=== PATIENT | male | born 1965 | race African-American/Black ===

== ENCOUNTER 2017-07-12 18:50 | Inpatient (IN) | payer OTHER ==
[2017-07-12 20:20] VITALS: BMI 25.9
--- NOTE | 2017-07-12 21:13 | HP ---
COWS - Scale Resting Pulse: 1= RI 81-100 Sweatin= Chills/Flushing Restless Observation: 1= Difficult to Sit Still Pupil Size: 1= Pupils >than Normal Bone or Joint Aches: 2= Severe Diffuse Aches Runny Nose/ Eye Tearin= Nasal Congestion GI Upset > 30mins: 2= Nausea/Diarrhea Tremor Observation: 1= Tremor [place], Not Seen Yawning Observation: 1= 1-2x During Session Anxiety or Irritability: 1=Feels Anxious/Irritable Goose Flesh Skin: 3=Piloerection COWS Score: 15 CIWA Score - CIWA Score Nausea/Vomitin-Mild Nausea/No Vomiting Muscle Tremors: 2 Anxiety: 2 Agitation: 2 Paroxysmal Sweats: 1-Minimal Palms Moist Orientation: 2-Disoriented Date<2 days Tacttile Disturbances: 1-Very Mild Itch/Numbness Auditory Disturbances: 1-Very Mild Visual Disturbances: 1-Very Mild Sensitivity Headache: 2-Mild CIWA-Ar Total Score: 15 Admission [facility] - HPI Chief Complaint: Withdrawal symptoms Allergies/Adverse Reactions: Allergies Allergy/AdvReac Type Severity Reaction Status Date / Time Penicillins Allergy Verified 07/12/17 21:09 History of Present Illness: 51 y.o. man with an extensive history of drug and alcohol dependence is here seeking detox. He was recently released from long term after 24 months. Does not have a significant period of sobriety. Exam Limitations: No Limitations - Ebola screening Have you traveled outside of the country in the last 21 days: No (N) Have you had contact with anyone from an Ebola affected area: No Have you been sick,other than usual withdrawal symptoms: No Do you have a fever: No - Review of Systems Constitutional: Loss of Appetite, Night Sweats, Changes in sleep EENT: reports: Tearing, Nose Congestion Respiratory: reports: Cough, Wheezing Cardiac: reports: No Symptoms Reported GI: reports: Diarrhea, Nausea, Poor Appetite, Vomiting : reports: No Symptoms Reported Musculoskeletal: reports: Back Pain, Joint Pain, Neck Pain Integumentary: reports: No Symptoms Reported Neuro: reports: Headache, Tremors Endocrine: reports: No Symptoms Reported Hematology: reports: No Symptoms Reported Psychiatric: reports: Anxious, Depressed Other Systems: Reviewed and Negative Patient History - Patient Medical History Hx Anemia: No Hx Asthma: Yes Hx Chronic Obstructive Pulmonary Disease (COPD): No Hx Cancer: No Hx Cardiac Disorders: No Hx Congestive Heart Failure: No Hx Hypertension: No Hx Hypercholesterolemia: No Hx Pacemaker: No HX Cerebrovascular Accident: No Hx Seizures: No Hx Dementia: No Hx Diabetes: No Hx Gastrointestinal Disorders: Yes (Zantac ) Hx Liver Disease: No Hx Genitourinary Disorders: No Hx Sexually Transmitted Disorders: No Hx Renal Disease (ESRD): No Hx Thyroid Disease: No Hx Human Immunodeficiency Virus (HIV): No Hx Hepatitis C: No Hx Depression: Yes Hx Suicide Attempt: Yes (Reports having SI on 07/11/17 and went to [facility] for assistance) Hx Bipolar Disorder: No Hx Schizophrenia: No - Patient Surgical History Past Surgical History: Yes Other Surgical History: Hernia repair-2015 Anesthesia Reaction: No - PPD History Documented Results: Negative w/o proof PPD to be Administered?: Yes - Reproductive History Patient is a Female of Child Bearing Age (11 -55 yrs old): No - Smoking Cessation Smoking history: Current every day smoker Have you smoked in the past 12 months: Yes Aproximately how many cigarettes per day: 5 Initiated information on smoking cessation: Yes 'Breaking Loose' booklet given: 07/12/17 - Substance & Tx. History Hx Alcohol Use: Yes Hx Substance Use: Yes Substance Use Type: Alcohol, Cocaine, Heroin Hx Substance Use Treatment: Yes (Does not recall his last detox admission; denies going to rehab ever) - Substances Abused Alcohol Route: Oral Frequency: Daily Amount used: 1.5 pints of liquor Age of first use: 8 Date of Last Use: 07/11/17 Heroin Route: Inhalation Frequency: Daily Amount used: 1-2 bags Age of first use: 48 Date of Last Use: 07/11/17 Cocaine Route: Smoking Frequency: Daily Amount used: $200 Age of first use: 19 Date of Last Use: 07/11/17 Family Disease History - Family Disease History Family History: Unable to Obtain Admission Physical Exam BHS - Vital Signs Vital Signs: Vital Signs - 24 hr 07/12/17 20:18 Temperature 97.3 F L Pulse Rate 96 H Respiratory 20 Rate Blood Pressure 155/87 - Physical General Appearance: Yes: Sweating, Anxious HEENTM: Yes: Normocephalic, Normal Voice Respiratory: Yes: Chest Non-Tender, Lungs Clear, Normal Breath Sounds, No Respiratory Distress, No Accessory Muscle Use Neck: Yes: No masses,lesions,Nodules, Trachea in good position Breast: Yes: Breast Exam Deferred Cardiology: Yes: Regular Rhythm, Regular Rate Abdominal: Yes: Non Tender, Flat, Soft Genitourinary: Yes: Within Normal Limits Back: Yes: Normal Inspection Musculoskeletal: Yes: Back pain, Joint Stiffness Extremities: Yes: Normal Capillary Refill, Normal Inspection, Normal Range of Motion Neurological: Yes: Alert, Normal Mood/Affect, Normal Response Integumentary: Yes: Normal Color, Dry, Warm Lymphatic: Yes: Within Normal Limits - Diagnostic (1) Alcohol dependence with uncomplicated withdrawal Current Visit: Yes Status: Chronic (2) Opioid dependence with withdrawal Current Visit: Yes Status: Chronic (3) Asthma Current Visit: Yes Status: Chronic (4) GERD (gastroesophageal reflux disease) Current Visit: Yes Status: Chronic Cleared for Admission S - Detox or Rehab [facility] Level of Care: Medically Managed Detox Regimen/Protocol: Methadone/Librium [facility] Breath Alcohol Content Breath Alcohol Content: 0 Urine Drug Screen - Results Drug Screen Negative: No Urine Drug Screen Results: PATRICIA-Cocaine, OPI-Opiates
[2017-07-12] MEDS ORDERED: LOPERAMIDE HCL 2 MG CAPSULE PO PRN (21:38)
[2017-07-12] MEDS ORDERED: hydrOXYzine PAMOATE 50 MG CAPSULE (FP) PO PRN (21:38)
[2017-07-12] MEDS ORDERED: NICOTINE POLACRILEX 2 MG GUM BUC PRN (21:38)
[2017-07-12] MEDS ORDERED: MAGNESIUM CITRATE 300 ML BOTTLE PO PRN (21:38)
[2017-07-12] MEDS ORDERED: chlordiazePOXIDE HCL 25 MG CAPSULE PO PRN (21:38)
[2017-07-12] MEDS ORDERED: chlordiazePOXIDE HCL 25 MG CAPSULE PO ONE (21:38)
[2017-07-12] MEDS ORDERED: MAG HYDROX/AL HYDROX/SIMETH 30 ML UNIT-DOSE CUP PO PRN (21:38)
[2017-07-12] MEDS ORDERED: ACETAMINOPHEN 325 MG TABLET (FP) PO PRN (21:38)
[2017-07-12] MEDS ORDERED: MENTHOL/PHENOL 1 EACH UD MM PRN (21:38)
[2017-07-12] MEDS ORDERED: IBUPROFEN 400 MG TABLET (FP) PO PRN (21:38)
[2017-07-12] MEDS ORDERED: METHADONE HCL 10 MG TABLET (FOR DETOX USE ONLY) PO ONE ×2 (21:38→23:00)
[2017-07-12] MEDS ORDERED: P-EPHED 60MG/TRIPROLIDI 2.5MG TABLET PO PRN (21:38)
[2017-07-12] MEDS ORDERED: MAGNESIUM HYDROX 2400MG/30ML ORAL SUSPENSION 30 ML CUP PO PRN (21:38)
[2017-07-12] MEDS ORDERED: guaiFENesin/D-METHORPHAN HB 10 ML UNIT-DOSE CUPS PO PRN (21:38)
[2017-07-12] MEDS ORDERED: chlordiazePOXIDE HCL 25 MG CAPSULE PO SCH (23:00)
[2017-07-13] MEDS ORDERED: chlordiazePOXIDE HCL 25 MG CAPSULE PO PRN (00:50)
[2017-07-13] MEDS ORDERED: METHADONE HCL 10 MG TABLET (FOR DETOX USE ONLY) PO ONE ×3 (00:50→22:00)
[2017-07-13] MEDS ORDERED: chlordiazePOXIDE HCL 25 MG CAPSULE PO ONE (00:50)
[2017-07-13] MEDS: diphenhydrAMINE HCL 50 MG CAPSULE PO PRN ×2 (01:14→22:17)
[2017-07-13] MEDS: FLUTICASONE/SALMETEROL 100 MCG/50 MCG DISKUS IH SCH ×3 (02:00→22:20)
[2017-07-13] MEDS: THIAMINE HCL 100 MG TABLET (FP) PO SCH ×2 (02:01→22:17)
[2017-07-13] MEDS: chlordiazePOXIDE HCL 25 MG CAPSULE PO SCH ×4 (05:33→22:17)
[2017-07-13] MEDS ORDERED: METHADONE HCL 10 MG TABLET (FOR DETOX USE ONLY) PO SCH (10:00)
[2017-07-13] MEDS: PRENATAL VITAMINS W/ FOLIC ACID TABLET (FP) PO SCH (10:32)
[2017-07-13] MEDS: LORATADINE 10 MG TABLET PO SCH (10:32)
[2017-07-13] MEDS: RANITIDINE HCL 150 MG TABLET (FP) PO SCH (10:32)
[2017-07-13] MEDS: NICOTINE 14 MG/24 HOURS TOPICAL PATCH TD SCH (10:33)
[2017-07-13 10:36] LABS: SGOT/AST 52 U/L (15-37); SGPT/ALT 49 U/L (12-78)
--- NOTE | 2017-07-13 10:36 | PN ---
[facility] CIWA - CIWA Score Nausea/Vomitin-No Nausea/No Vomiting Muscle Tremors: 4-Moderate,w/Arms Extend Anxiety: 4-Mod. Anxious/Guarded Agitation: 4-Moderately Restless Paroxysmal Sweats: 2 Orientation: 0-Oriented Tacttile Disturbances: 3-Moderate Itch/Numb/Burn Auditory Disturbances: 0-None Visual Disturbances: 0-None Headache: 0-None Present CIWA-Ar Total Score: 17 BHS COWS - Scale Resting Pulse: 0= [place] 80 or Below Sweatin= Chills/Flushing Restless Observation: 3= Extraneous Movement Pupil Size: 2= Moderately Dilated Bone or Joint Aches: 4=Acute Joint/Muscle Pain Runny Nose/ Eye Tearin= Nasal Congestion GI Upset > 30mins: 1= Stomach Cramp Tremor Observation of Outstretched Hands: 1= Tremor [place], Not Seen Yawning Observation: 1= 1-2x During Session Anxiety or Irritability: 2=Irritable/Anxious Goose Flesh Skin: 0=Smooth Skin COWS Score: 16 S Progress Note (SOAP) Subjective: ANXIETY,SWEATS,TREMORS, INTERMITTENT SLEEP. Objective: 07/13/17 10:36 Vital Signs Temperature 96.1 F L 07/13/17 09:34 Pulse Rate 74 07/13/17 09:34 Respiratory Rate 18 07/13/17 09:34 Blood Pressure 125/78 07/13/17 09:34 O2 Sat by Pulse Oximetry (%) LABS PENDING Assessment: 07/13/17 10:36 WITHDRAWAL SX Plan: CONTINUE DETOX
[2017-07-13 10:39] LABS: MCH 28.5 pg (25.7-33.7); MCHC 32.4 g/dl (32.0-35.9); MEAN CELL VOLUME 88.1 fl (80-96); MEAN PLT VOLUME 9.4 fl (7.5-11.1); PLATELET COUNT 170 K/MM3 (134-434); RDW 15.8 % (11.9-15.9); WHITE BLOOD COUNT 7.1 K/mm3 (4.0-10.0)
[2017-07-13 10:40] LABS: ALBUMIN 3.3 g/dl (3.4-5.0); ALK PHOS 86 U/L (45-117); ANION GAP 8 (8-16); BILIRUBIN,TOTAL 0.3 mg/dL (0.2-1.0); CALCIUM 8.7 mg/dL (8.5-10.1); CO2 29 mmol/L (21-32); GLUCOSE,RANDOM 138 mg/dL (74-106)
--- NOTE | 2017-07-13 11:09 | CONSULT ---
[facility] Psychiatric Consult - Data Date of interview: 07/13/17 Admission source: [facility] Identifying data: First admission to [facility] for this 51 y/o AA male seeking detox treatment on for alcohol,cocaine and heroin dependence.Patient is single without children,homeless,unemployed and awaiting approval of his recent application for welfare benefits. Substance Abuse History: Discussed with patient in this session.Mr Patricia confirms this [facility] report as accurate about his patterns of substance use. Smoking Cessation. Smoking history: Current every day smoker. Have you smoked in the past 12 months: Yes. Aproximately how many cigarettes per day: 5. Initiated information on smoking cessation: Yes. 'Breaking Loose' booklet given : 07/12/17. - Substance & Tx. History. Hx Alcohol Use: Yes. Hx Substance Use : Yes. Substance Use Type: Alcohol, Cocaine, Heroin. Hx Substance Use Treatment: Yes (Does not recall his last detox admission; denies going to rehab ever). - Substances Abused. Alcohol. Route: Oral. Frequency: Daily. Amount used: 1.5 pints of liquor. Age of first use: 8. Date of Last Use: 07/11. Heroin. Route: Inhalation. Frequency: Daily. Amount used: 1-2 bags. Age of first use: 48. Date of Last Use: 07/11/17. Cocaine. Route: Smoking. Frequency: Daily. Amount used: $200. Age of first use: 19. Date of Last Use: 07/11/17 Medical History: GERD,bronchial asthma and a history of herniorrapphy. Psychiatric History: Patient reports that he was diagnosed with MDD during his recent incarceration.Medicated with celexa (dose not recalled).No current affiliation with psychiatric OPD care providers (patient is just released form [facility]).Mr Patricia admits to one psychiatric hospitalization ([facility]) for suicidal ideation and depressed mood.No reported history of suicide attempts. Physical/Sexual Abuse/Trauma History: Patient denies. Additional Comment: Urine Drug Screen Results: PATRICIA-Cocaine, OPI-Opiates.Noted. Mental Status Exam - Mental Status Exam Alert and Oriented to: Time, Place, Person Cognitive Function: Good Patient Appearance: Well Groomed Mood: Withdrawn Affect: Mood Congruent Patient Behavior: Sedated (mildly sedated), Fatigued, Cooperative Speech Pattern: Clear Voice Loudness: Normal Thought Process: Goal Oriented Thought Disorder: Not Present Hallucinations: Denies Suicidal Ideation: Denies Homicidal Ideation: Denies Insight/Judgement: Poor Sleep: Well Appetite: Good Muscle strength/Tone: Normal Gait/Station: Normal Psychiatric Findings - Problem List ([place] 1, 2,3) (1) Alcohol dependence with uncomplicated withdrawal Current Visit: Yes Status: Chronic (2) Opioid dependence with withdrawal Current Visit: Yes Status: Chronic (3) Substance induced mood disorder Current Visit: Yes Status: Acute (4) Asthma Current Visit: Yes Status: Chronic (5) GERD (gastroesophageal reflux disease) Current Visit: Yes Status: Chronic - Initial Treatment Plan Initial Treatment Plan: Psychoeducation.Detoxification.Celexa 20 mg po daily.Side effects/benefits discussed with patient.Mr Patricia requests that celexa be part of his current medications regimen.Observation.
[2017-07-13 15:10] LABS: URINE APPEARANCE CLOUDY; URINE BILIRUBIN NEGATIVE (NEGATIVE); URINE BLOOD NEGATIVE (NEGATIVE); URINE COLOR DKYELLOW; URINE GLUCOSE (UA) NEGATIVE (NEGATIVE); URINE KETONE NEGATIVE (NEGATIVE); URINE NITRITE NEGATIVE (NEGATIVE); URINE PROTEIN NEGATIVE (NEGATIVE); URINE UROBILINOGEN 4.0 E.U/dl mg/dL (0.2-1.0)
[2017-07-13 15:15] LABS: URINE LEUK ESTERASE 2+ (NEGATIVE)
[2017-07-13 15:46] LABS: CALCIUM OXALATE CRYSTALS RARE /hpf (NONE SEEN); URIC ACID CRYSTALS MODERATE /hpf (NONE SEEN); URINE MUCUS RARE; URINE RBC 3 /hpf (0-3); URINE WBC 57 /hpf (3-5)
[2017-07-13] MEDS: ALBUTEROL SO4 6.7 GM HFA INHALER IH PRN (17:00)
--- NOTE | 2017-07-13 20:01 | EKG ---
Test Reason : Blood Pressure : / mmHG Vent. Rate : 068 BPM Atrial Rate : 068 BPM P-R Int : 120 ms QRS Dur : 080 ms QT Int : 362 ms P-R-T Axes : 047 061 -07 degrees QTc Int : 384 ms NORMAL SINUS RHYTHM SEPTAL INFARCT , AGE UNDETERMINED ABNORMAL ECG NO PREVIOUS ECGS AVAILABLE Confirmed by NITA LOUISE MD ([id number]) on 07/13/2017 8:00:44 PM Referred By: Confirmed By:NITA LOUISE MD
[2017-07-13] MEDS: POTASSIUM CHLORIDE ORAL LIQUID 20 MEQ/15 ML PO SCH (22:17)
[2017-07-13] MEDS ORDERED: chlordiazePOXIDE HCL 25 MG CAPSULE PO SCH (23:00)
[2017-07-14] MEDS: chlordiazePOXIDE HCL 25 MG CAPSULE PO SCH ×4 (05:57→22:09)
[2017-07-14] MEDS ORDERED: METHADONE HCL 5 MG TABLET (FOR DETOX USE ONLY) PO SCH ×2 (10:00)
[2017-07-14] MEDS: POTASSIUM CHLORIDE ORAL LIQUID 20 MEQ/15 ML PO SCH ×2 (10:27→22:10)
[2017-07-14] MEDS: CITALOPRAM HYDROBROMIDE 20 MG TABLET (FP) PO SCH (10:27)
[2017-07-14] MEDS: LORATADINE 10 MG TABLET PO SCH (10:28)
[2017-07-14] MEDS: PRENATAL VITAMINS W/ FOLIC ACID TABLET (FP) PO SCH (10:28)
[2017-07-14] MEDS: RANITIDINE HCL 150 MG TABLET (FP) PO SCH (10:28)
[2017-07-14] MEDS: NICOTINE 14 MG/24 HOURS TOPICAL PATCH TD SCH (10:29)
[2017-07-14] MEDS: FLUTICASONE/SALMETEROL 100 MCG/50 MCG DISKUS IH SCH ×2 (10:29→22:09)
--- NOTE | 2017-07-14 11:00 | PN ---
S CIWA - CIWA Score Nausea/Vomitin-No Nausea/No Vomiting Muscle Tremors: 4-Moderate,w/Arms Extend Anxiety: 4-Mod. Anxious/Guarded Agitation: 2 Paroxysmal Sweats: 1-Minimal Palms Moist Orientation: 0-Oriented Tacttile Disturbances: 3-Moderate Itch/Numb/Burn Auditory Disturbances: 0-None Visual Disturbances: 0-None Headache: 0-None Present CIWA-Ar Total Score: 14 BHS COWS - Scale Resting Pulse: 0= [place] 80 or Below Sweatin= Chills/Flushing Restless Observation: 3= Extraneous Movement Pupil Size: 0= Normal to Room Light Bone or Joint Aches: 4=Acute Joint/Muscle Pain Runny Nose/ Eye Tearin= Nasal Congestion GI Upset > 30mins: 0= None Tremor Observation of Outstretched Hands: 1= Tremor [place], Not Seen Yawning Observation: 1= 1-2x During Session Anxiety or Irritability: 2=Irritable/Anxious Goose Flesh Skin: 0=Smooth Skin COWS Score: 13 S Progress Note (SOAP) Subjective: ANXIETY,SWEATS,SLIGHT TREMORS. Objective: 07/14/17 10:59 Vital Signs Temperature 98.2 F 07/14/17 09:42 Pulse Rate 76 07/14/17 09:42 Respiratory Rate 18 07/14/17 09:42 Blood Pressure 132/64 07/14/17 09:42 O2 Sat by Pulse Oximetry (%) Laboratory Last Values WBC 7.1 K/mm3 (4.0-10.0) 07/13/17 07:00 RBC 4.35 M/mm3 (4.00-5.60) 07/13/17 07:00 Hgb 12.4 GM/dL (11.7-16.9) 07/13/17 07:00 Hct 38.3 % (35.4-49) 07/13/17 07:00 MCV 88.1 fl (80-96) 07/13/17 07:00 MCH 28.5 pg (25.7-33.7) 07/13/17 07:00 MCHC 32.4 g/dl (32.0-35.9) 07/13/17 07:00 RDW 15.8 % (11.9-15.9) 07/13/17 07:00 Plt Count 170 K/MM3 (134-434) 07/13/17 07:00 MPV 9.4 fl (7.5-11.1) 07/13/17 07:00 Sodium 146 mmol/L (136-145) H 07/13/17 07:00 Potassium 3.2 mmol/L (3.5-5.1) L 07/13/17 07:00 Chloride 109 mmol/L (98-107) H 07/13/17 07:00 Carbon Dioxide 29 mmol/L (21-32) 07/13/17 07:00 Anion Gap 8 (8-16) 07/13/17 07:00 BUN 13 mg/dL (7-18) 07/13/17 07:00 Creatinine 1.0 mg/dL (0.7-1.3) 07/13/17 07:00 Creat Clearance w eGFR > 60 (>60) 07/13/17 07:00 Random Glucose 138 mg/dL (74-106) H 07/13/17 07:00 Calcium 8.7 mg/dL (8.5-10.1) 07/13/17 07:00 Total Bilirubin 0.3 mg/dL (0.2-1.0) 07/13/17 07:00 AST 52 U/L (15-37) H 07/13/17 07:00 ALT 49 U/L (12-78) 07/13/17 07:00 Alkaline Phosphatase 86 U/L (45-117) 07/13/17 07:00 Total Protein 6.0 g/dl (6.4-8.2) L 07/13/17 07:00 Albumin 3.3 g/dl (3.4-5.0) L 07/13/17 07:00 Urine Color Dkyellow 07/13/17 12:10 Urine Appearance Cloudy 07/13/17 12:10 Urine pH 6.0 (5.0-8.0) 07/13/17 12:10 Ur Specific [place] >= 1.030 (1.005-1.025) H 07/13/17 12:10 Urine Protein Negative (NEGATIVE) 07/13/17 12:10 Urine Glucose (UA) Negative (NEGATIVE) 07/13/17 12:10 Urine Ketones Negative (NEGATIVE) 07/13/17 12:10 Urine Blood Negative (NEGATIVE) 07/13/17 12:10 Urine Nitrite Negative (NEGATIVE) 07/13/17 12:10 Urine Bilirubin Negative (NEGATIVE) 07/13/17 12:10 Urine Urobilinogen 4.0 e.u/dl mg/dL (0.2-1.0) 07/13/17 12:10 Ur Leukocyte Esterase 2+ (NEGATIVE) H 07/13/17 12:10 Urine RBC 3 /hpf (0-3) 07/13/17 12:10 Urine WBC 57 /hpf (3-5) 07/13/17 12:10 Calcium Oxalate Crystal Rare /hpf (NONE SEEN) 07/13/17 12:10 Uric Acid Crystals Moderate /hpf (NONE SEEN) 07/13/17 12:10 Urine Mucus Rare 07/13/17 12:10 RPR Titer Nonreactive (NONREACTIVE) 07/13/17 07:00 Hepatitis C Antibody <0.1 s/co ratio (0.0-0.9) 07/12/17 07:00 LABS/UA ABNORMAL AND NOTED Assessment: 07/14/17 11:00 WITHDRAWAL SX HYPOKALEMIA R/O UTI Plan: CONTINUE DETOX REPEAT CMP AND UA;UC.
[2017-07-14] MEDS ORDERED: NICOTINE 14 MG/24 HOURS TOPICAL PATCH TD PRN (19:14)
[2017-07-14 21:47] LABS: URINE APPEARANCE SLCLOUDY; URINE BILIRUBIN NEGATIVE (NEGATIVE); URINE BLOOD NEGATIVE (NEGATIVE); URINE COLOR YELLOW; URINE GLUCOSE (UA) NEGATIVE (NEGATIVE); URINE KETONE NEGATIVE (NEGATIVE); URINE LEUK ESTERASE NEGATIVE (NEGATIVE); URINE NITRITE NEGATIVE (NEGATIVE); URINE PROTEIN NEGATIVE (NEGATIVE); URINE UROBILINOGEN NEGATIVE mg/dL (0.2-1.0)
[2017-07-14] MEDS: THIAMINE HCL 100 MG TABLET (FP) PO SCH (22:09)
[2017-07-14] MEDS: diphenhydrAMINE HCL 50 MG CAPSULE PO PRN (22:10)
[2017-07-14] MEDS: ALBUTEROL SO4 6.7 GM HFA INHALER IH PRN (22:12)
[2017-07-14] MEDS ORDERED: chlordiazePOXIDE 5 MG CAPSULE PO SCH (23:00)
[2017-07-15] MEDS: chlordiazePOXIDE 5 MG CAPSULE PO SCH ×2 (05:06→10:24)
[2017-07-15] MEDS ORDERED: METHADONE HCL 5 MG TABLET (FOR DETOX USE ONLY) PO SCH (10:00)
[2017-07-15] MEDS: RANITIDINE HCL 150 MG TABLET (FP) PO SCH (10:24)
[2017-07-15] MEDS: CITALOPRAM HYDROBROMIDE 20 MG TABLET (FP) PO SCH (10:24)
[2017-07-15] MEDS: PRENATAL VITAMINS W/ FOLIC ACID TABLET (FP) PO SCH (10:24)
[2017-07-15] MEDS: FLUTICASONE/SALMETEROL 100 MCG/50 MCG DISKUS IH SCH (10:25)
[2017-07-15] MEDS: POTASSIUM CHLORIDE ORAL LIQUID 20 MEQ/15 ML PO SCH (10:25)
[2017-07-15] MEDS: LORATADINE 10 MG TABLET PO SCH (10:25)
[2017-07-15 10:28] LABS: ALBUMIN 3.4 g/dl (3.4-5.0); ANION GAP 6 (8-16); CALCIUM 8.4 mg/dL (8.5-10.1); CO2 32 mmol/L (21-32); GLUCOSE,RANDOM 88 mg/dL (74-106)
[2017-07-15 10:32] LABS: ALK PHOS 74 U/L (45-117); BILIRUBIN,TOTAL 0.3 mg/dL (0.2-1.0); CREATININE 1.1 mg/dL (0.7-1.3); SGOT/AST 33 U/L (15-37); SGPT/ALT 47 U/L (12-78); TOT PROT 6.3 g/dl (6.4-8.2)
--- NOTE | 2017-07-15 10:53 | PN ---
BHS Progress Note (SOAP) Subjective: ANXIETY,SWEATS/CHILLS,FATIGUE. Objective: 07/15/17 10:52 Vital Signs Temperature 99.1 F 07/15/17 09:30 Pulse Rate 86 07/15/17 09:30 Respiratory Rate 20 07/15/17 09:30 Blood Pressure 138/89 07/15/17 09:30 O2 Sat by Pulse Oximetry (%) Laboratory Last Values WBC 7.1 K/mm3 (4.0-10.0) 07/13/17 07:00 RBC 4.35 M/mm3 (4.00-5.60) 07/13/17 07:00 Hgb 12.4 GM/dL (11.7-16.9) 07/13/17 07:00 Hct 38.3 % (35.4-49) 07/13/17 07:00 MCV 88.1 fl (80-96) 07/13/17 07:00 MCH 28.5 pg (25.7-33.7) 07/13/17 07:00 MCHC 32.4 g/dl (32.0-35.9) 07/13/17 07:00 RDW 15.8 % (11.9-15.9) 07/13/17 07:00 Plt Count 170 K/MM3 (134-434) 07/13/17 07:00 MPV 9.4 fl (7.5-11.1) 07/13/17 07:00 Sodium 141 mmol/L (136-145) 07/15/17 07:00 Potassium 3.8 mmol/L (3.5-5.1) 07/15/17 07:00 Chloride 103 mmol/L (98-107) 07/15/17 07:00 Carbon Dioxide 32 mmol/L (21-32) 07/15/17 07:00 Anion Gap 6 (8-16) L 07/15/17 07:00 BUN 14 mg/dL (7-18) 07/15/17 07:00 Creatinine 1.1 mg/dL (0.7-1.3) 07/15/17 07:00 Creat Clearance w eGFR > 60 (>60) 07/15/17 07:00 Random Glucose 88 mg/dL (74-106) D 07/15/17 07:00 Calcium 8.4 mg/dL (8.5-10.1) L 07/15/17 07:00 Total Bilirubin 0.3 mg/dL (0.2-1.0) 07/15/17 07:00 AST 33 U/L (15-37) D 07/15/17 07:00 ALT 47 U/L (12-78) 07/15/17 07:00 Alkaline Phosphatase 74 U/L (45-117) 07/15/17 07:00 Total Protein 6.3 g/dl (6.4-8.2) L 07/15/17 07:00 Albumin 3.4 g/dl (3.4-5.0) 07/15/17 07:00 Urine Color Yellow 07/14/17 21:24 Urine Appearance Slcloudy 07/14/17 21:24 Urine pH 5.0 (5.0-8.0) 07/14/17 21:24 Ur Specific [place] 1.025 (1.005-1.025) 07/14/17 21:24 Urine Protein Negative (NEGATIVE) 07/14/17 21:24 Urine Glucose (UA) Negative (NEGATIVE) 07/14/17 21:24 Urine Ketones Negative (NEGATIVE) 07/14/17 21:24 Urine Blood Negative (NEGATIVE) 07/14/17 21:24 Urine Nitrite Negative (NEGATIVE) 07/14/17 21:24 Urine Bilirubin Negative (NEGATIVE) 07/14/17 21:24 Urine Urobilinogen Negative mg/dL (0.2-1.0) 07/14/17 21:24 Ur Leukocyte Esterase Negative (NEGATIVE) 07/14/17 21:24 Urine RBC 3 /hpf (0-3) 07/13/17 12:10 Urine WBC 57 /hpf (3-5) 07/13/17 12:10 Calcium Oxalate Crystal Rare /hpf (NONE SEEN) 07/13/17 12:10 Uric Acid Crystals Moderate /hpf (NONE SEEN) 07/13/17 12:10 Urine Mucus Rare 07/13/17 12:10 RPR Titer Nonreactive (NONREACTIVE) 07/13/17 07:00 Hepatitis C Antibody <0.1 s/co ratio (0.0-0.9) 07/12/17 07:00 REPEAT UA IMPROVED; UC RESULT PENDING Assessment: 07/15/17 10:53 WITHDRAWAL SX Plan: CONTINUE DETOX
[2017-07-15 13:36] VITALS: BP 143/88; PULSE 84; TEMP 97.1
--- NOTE | 2017-07-15 21:32 | DS ---
[facility] Detox Discharge Summary Admission Date: 07/12/17 Discharge Date: 07/15/17 - History Present History: Alcohol Dependence, Opioid Dependence Additional Comments: RECEIVED NURSE REPORTS THAT THE PATIENT WANTS TO LEAVE THE UNIT TO CARE FOR HER HOME. PATIENT REFUSES TO WAIT FACE TO FACE WITH THE PROVIDER Pertinent Past History: ASTHMA GERD - Physical Exam Results Vital Signs: Vital Signs Temperature 97.1 F L 07/15/17 13:35 Pulse Rate 84 07/15/17 13:35 Respiratory Rate 20 07/15/17 13:35 Blood Pressure 143/88 07/15/17 13:35 O2 Sat by Pulse Oximetry (%) Pertinent Admission Physical Exam Findings: WITHDRAWAL SX Laboratory Last Values WBC 7.1 K/mm3 (4.0-10.0) 07/13/17 07:00 RBC 4.35 M/mm3 (4.00-5.60) 07/13/17 07:00 Hgb 12.4 GM/dL (11.7-16.9) 07/13/17 07:00 Hct 38.3 % (35.4-49) 07/13/17 07:00 MCV 88.1 fl (80-96) 07/13/17 07:00 MCH 28.5 pg (25.7-33.7) 07/13/17 07:00 MCHC 32.4 g/dl (32.0-35.9) 07/13/17 07:00 RDW 15.8 % (11.9-15.9) 07/13/17 07:00 Plt Count 170 K/MM3 (134-434) 07/13/17 07:00 MPV 9.4 fl (7.5-11.1) 07/13/17 07:00 Sodium 141 mmol/L (136-145) 07/15/17 07:00 Potassium 3.8 mmol/L (3.5-5.1) 07/15/17 07:00 Chloride 103 mmol/L (98-107) 07/15/17 07:00 Carbon Dioxide 32 mmol/L (21-32) 07/15/17 07:00 Anion Gap 6 (8-16) L 07/15/17 07:00 BUN 14 mg/dL (7-18) 07/15/17 07:00 Creatinine 1.1 mg/dL (0.7-1.3) 07/15/17 07:00 Creat Clearance w eGFR > 60 (>60) 07/15/17 07:00 Random Glucose 88 mg/dL (74-106) D 07/15/17 07:00 Calcium 8.4 mg/dL (8.5-10.1) L 07/15/17 07:00 Total Bilirubin 0.3 mg/dL (0.2-1.0) 07/15/17 07:00 AST 33 U/L (15-37) D 07/15/17 07:00 ALT 47 U/L (12-78) 07/15/17 07:00 Alkaline Phosphatase 74 U/L (45-117) 07/15/17 07:00 Total Protein 6.3 g/dl (6.4-8.2) L 07/15/17 07:00 Albumin 3.4 g/dl (3.4-5.0) 07/15/17 07:00 Urine Color Yellow 07/14/17 21:24 Urine Appearance Slcloudy 07/14/17 21:24 Urine pH 5.0 (5.0-8.0) 07/14/17 21:24 Ur Specific [place] 1.025 (1.005-1.025) 07/14/17 21:24 Urine Protein Negative (NEGATIVE) 07/14/17 21:24 Urine Glucose (UA) Negative (NEGATIVE) 07/14/17 21:24 Urine Ketones Negative (NEGATIVE) 07/14/17 21:24 Urine Blood Negative (NEGATIVE) 07/14/17 21:24 Urine Nitrite Negative (NEGATIVE) 07/14/17 21:24 Urine Bilirubin Negative (NEGATIVE) 07/14/17 21:24 Urine Urobilinogen Negative mg/dL (0.2-1.0) 07/14/17 21:24 Ur Leukocyte Esterase Negative (NEGATIVE) 07/14/17 21:24 Urine RBC 3 /hpf (0-3) 07/13/17 12:10 Urine WBC 57 /hpf (3-5) 07/13/17 12:10 Calcium Oxalate Crystal Rare /hpf (NONE SEEN) 07/13/17 12:10 Uric Acid Crystals Moderate /hpf (NONE SEEN) 07/13/17 12:10 Urine Mucus Rare 07/13/17 12:10 RPR Titer Nonreactive (NONREACTIVE) 07/13/17 07:00 Hepatitis C Antibody <0.1 s/co ratio (0.0-0.9) 07/12/17 07:00 LAB NOTED - Treatment Hospital Course: Detox Protocol Followed, Responded well Patient has Accepted a Rehab Referral to: [facility] - Medication Discharge Medications: Ambulatory Orders Citalopram Hydrobromide [Celexa -] 40 mg PO DAILY 07/12/17 Citalopram Hydrobromide [Celexa -] 20 mg PO DAILY #30 tablet 07/13/17 - Diagnosis (1) Alcohol dependence with uncomplicated withdrawal Status: Acute (2) Opioid dependence with withdrawal Status: Acute (3) Asthma Status: Chronic Qualifiers: Asthma severity: mild intermittent Asthma complication type: uncomplicated Qualified Code(s): J45.20 - Mild intermittent asthma, uncomplicated (4) GERD (gastroesophageal reflux disease) Status: Chronic Qualifiers: Esophagitis presence: without esophagitis Qualified Code(s): K21.9 - Gastro-esophageal reflux disease without esophagitis - AMA Did Patient Leave Against Medical Advice: Yes
[2017-07-15] MEDS ORDERED: chlordiazePOXIDE HCL 10 MG CAPSULE PO SCH (23:00)
[2017-07-16] MEDS ORDERED: chlordiazePOXIDE HCL 10 MG CAPSULE PO SCH (05:00)
[2017-07-16] MEDS ORDERED: METHADONE HCL 10 MG TABLET (FOR DETOX USE ONLY) PO SCH (10:00)
[2017-07-17] MEDS ORDERED: METHADONE HCL 5 MG TABLET (FOR DETOX USE ONLY) PO SCH (06:00)
[2017-07-17] MEDS ORDERED: METHADONE HCL 10 MG TABLET (FOR DETOX USE ONLY) PO SCH (10:00)
[2017-07-18] MEDS ORDERED: METHADONE HCL 10 MG TABLET (FOR DETOX USE ONLY) PO SCH (06:00)
== END 2017-07-15 18:10 | disposition left against medical advice (07) | DRG 770 ==
LOC: YASAS 18:50 → Y3N 22:02
PROVIDERS: ADMIT Internal Medicine; ATTEND Internal Medicine
PROC: HZ2ZZZZ Detoxification Services for Substance Abuse Treatment (ICD-10-PCS; principal; 2017-07-12)
DX: F11.23 Opioid dependence with withdrawal (principal); F10.230 Alcohol dependence with withdrawal, uncomplicated; F14.20 Cocaine dependence, uncomplicated; F17.210 Nicotine dependence, cigarettes, uncomplicated; F19.24 Other psychoactive substance dependence with psychoactive substance-induced mood disorder; J45.20 Mild intermittent asthma, uncomplicated; K21.9 Gastro-esophageal reflux disease without esophagitis; E87.6 Hypokalemia; R82.90 Unspecified abnormal findings in urine; Z88.0 Allergy status to penicillin; Z91.5 Personal history of self-harm; Z59.0 Homelessness
CPT/HCPCS: 36415; 80053; 81003; 81015; 85027; 86593; 86803; 87086; 93005; 93010